=== PATIENT | male | born 1950 | race Caucasian/White ===

== ENCOUNTER → 2019-05-10 13:02 | Outpatient (CLI) | payer OTHER, SELFPAY ==
[2019-05-10 14:01] LABS: Cholesterol 197 mg/dL (140-199); Glucose 96 mg/dL (80-110); HDL Cholesterol 37 mg/dL (40-60); LDL Cholesterol Calculated 113 mg/dL (<100); Triglycerides 236 mg/dL (35-150)
== END ==
PROVIDERS: PCP Family Medicine; Visit Provider Family Medicine
DX: E78.00 Pure hypercholesterolemia, unspecified (principal)
CPT/HCPCS: 36415; 80061; 82947

== ENCOUNTER → 2020-01-06 08:24 | Outpatient (CLI) | payer OTHER, SELFPAY ==
[2020-01-06 09:57] LABS: Cholesterol 147 mg/dL (140-199); HDL Cholesterol 41 mg/dL (40-60); LDL Cholesterol Calculated 73 mg/dL (<100); Triglycerides 163 mg/dL (35-150)
== END ==
PROVIDERS: PCP Family Medicine; Referring Provider Family Medicine; Visit Provider Family Medicine
DX: E78.5 Hyperlipidemia, unspecified (principal)
CPT/HCPCS: 36415; 80061

== ENCOUNTER → 2020-02-12 14:03 | Outpatient (CLI) | payer OTHER, SELFPAY ==
[2020-02-14 02:13] LABS: COVID19 Sendout Not Detected (Not Detect)
== END ==
PROVIDERS: PCP Family Medicine; Visit Provider Student in an Organized Health Care Education/Training Program
DX: Z11.59 Encounter for screening for other viral diseases (principal)
CPT/HCPCS: 87635

== ENCOUNTER 2020-02-15 13:38 | Day surgery (SDC) | payer OTHER, SELFPAY ==
--- NOTE | 2020-02-15 | PATH_ITS ---
[facility] Accession Number: [id number] . 01 Material submitted: . body - POLYP AT 40CM . 02 Diagnosis: Colon Polyp at 40 cm, Biopsy: Tubular adenoma. MRV 02/18/2020 1215 Local . 02 Electronically signed: . Mynor Gonzalez MD, PhD, Pathologist NPI- [id number] . 01 Gross description: . The specimen is received in formalin, labeled polyp at 40 cm and consists of two caballero fragments of soft tissue, measuring 0.6 x 0.5 x 0.3 cm in aggregate. The specimen is entirely submitted in cassette A1. ([id number]) /[facility] 02/16/2020 1635 Local . 02 Pathologist provided ICD-10: D12.6 . 02 CPT . 019464 Performed at: 01 [facility] [address] [id number] MD Kiran Raman MD Phone: [phone] Performed at: 02 [facility] [address] [place] [id number] MD Petrona Plaza MD Phone: [phone]
[2020-02-15] MEDS: SODIUM CHLORIDE 0.9% 1,000 ML 200 ML IV (14:00)
[2020-02-15 14:06] VITALS: BP 135/74; PULSE 60; RESP 12; TEMP 36.9; O2SAT 100; BMI 27.8
--- NOTE | 2020-02-15 14:36 | PM.HP.1 ---
History of Present Illness History of Present Illness Date Patient Seen: 02/15/20 Time Patient Seen: 14:36 Chief complaint: SDC Narrative: This is a 69-year-old man with history of colonoscopy 10 years ago which was reportedly normal. He denies any new symptoms of melena, hematochezia, unexplained abdominal pain, unexplained weight loss. He denies any personal or family history of colon polyps or colon cancers. He says he is otherwise quite healthy. ROS: Reports sleep apnea, Thirteen system review is otherwise negative other than as mentioned below and in HPI. PE: GENERAL: Well groomed and cooperative. Appears stated age. Answers questions promptly and appropriately. Vital signs noted. HENT: Normocephalic, atraumatic. Hearing intact. EYES: Conjunctiva pink, sclera white, no periorbital swelling. CARDIOVASCULAR: Regular rate. No pedal edema. RESPIRATORY: Non-tachypneic, breathing comfortably on room air. GASTROINTESTINAL: Abdomen soft and non-distended GENITALURINARY: No flank tenderness. MUSCULOSKELETAL: Equal tone and mass bilaterally. SKIN: Warm, dry, soft, appropriate color for ethnicity. No other lesions, rashes, or wounds. NEURO: Alert and Oriented X 3. No gross sensory deficits, or cognitive issues. PSYCH: Appropriate affect and mood. Patient History Medical History Chicken pox (Resolved) Obstructive sleep apnea syndrome (Acute 10/20/19) Snoring (Acute) Surgical History Anesthesia (Resolved) Deviated septum (Resolved ~2004) Hip fracture, right (Resolved ~2007) Family & Social History Family History Father Alzheimer's disease Loud snoring Dementia Mother Suicide Insomnia Restless leg Sister COPD (chronic obstructive pulmonary disease) Loud snoring Family/Other Alcoholism Social History: household members spouse other boating Tobacco & Substance use: Smoking Status Never smoker alcohol intake current alcohol intake frequency a few times a month Substance Use Type does not use Meds Home Medications and Allergies Home Medications Medication Instructions Recorded Confirmed Type atorvastatin 10 mg tablet 10 mg PO BEDTIME #90 tab 11/16/19 02/15/20 Rx ipratropium bromide 0.03 % nasal 2 spray NASAL BID-TID #30 ml 11/30/19 02/15/20 Rx spray fluticasone propionate 50 1 spray INTRANASAL QDAY #54.6 ml 12/24/19 02/15/20 Rx mcg/actuation nasal spray,suspension Allergies Allergy/AdvReac Type Severity Reaction Status Date / Time No Known Drug Allergies Allergy Verified 02/15/20 13:53 Exam Vital Signs (past 8 hours): - 02/15/20 14:06 Temperature 98.5 F Pulse Rate 60 Respiratory Rate 12 Blood Pressure 135/74 Pulse Oximetry 100 Oxygen Delivery Method Room Air Assessment & Plan Assessment and plan (1) At average risk for colon cancer: Status: Acute Assessment & Plan narrative: Risks and benefits of screening colonoscopy and possible polypectomy were discussed with the patient including risk of bleeding, perforation, need for additional procedures, risks of anesthesia. The patient desires to proceed with the colonoscopy procedure. COVID-19 COVID-19 status: Negative Result date/Date tested (Pos, Neg/Pending): 02/12/20 Time Spent With Patient Time with patient: 15-24 minutes Quality VTE Deep Vein Thrombosis/Pulmonary Embolism Present on Admission: No
--- NOTE | 2020-02-15 14:45 | P.OP.ENDO_ITS ---
Operative Date/Time/Diagnoses Date of procedure: 02/15/20 Time of procedure: 14:45 Pre-op diagnosis: Average risk for colon cancer, 10 years since last screening colonoscopy Post-op diagnosis: other (5 mm adenomatous appearing polyp at 40 cm) Procedure & Clinicians Study performed: Colonoscopy Procedural sedation performed by the endoscopist Polypectomy with cold forceps Same procedure as scheduled: Yes Indications: Average risk for colon cancer, 10 years since last screening colonoscopy Surgeon: Nuria Beltran Procedure Notes SCOAP/Timeout: Performed Procedure in detail: The patient was brought to the room and placed in left lateral decubitus position with all bony prominences padded. A time-out was performed and then the patient was given procedural sedation starting with 4 mg of Versed and 100 mcg of fentanyl. Total of 5 mg of Versed and 150 micro g of fentanyl were given for the entire procedure. Vitals were monitored throughout the procedure and remained stable. Once adequately sedated, the procedure was begun. A rectal exam was performed revealing no abnormalities. The colonoscope was then introduced to the rectum and advanced to the cecum in the usual fashion. The cecum was identified by the appendiceal orifice, the mucosal tri- fold, and the ileocecal valve. The scope was then retracted while rotating side to side and examining each mucosal fold. Moderate diverticulosis was seen through the left side of the colon. A single polyp was found at 40 cm and removed in pieces. It was at a very difficult angle and was removed piecemeal using cold snare and cold forceps. At the conclusion of the procedure retroflexion was performed and small grade 1-2 internal hemorrhoids without stigmata of bleeding were seen. The scope was then withdrawn from the rectum the procedure was concluded. The patient tolerated the procedure well and was transferred to the PACU in stable condition. Scope withdrawal time: 14 Sedation minutes: 38 Findings: diverticulosis and polyp Specimen(s): other (Follow-up from 40 cm) Complications: none Impression: Moderate diverticulosis, single polyp at 40 cm Post-procedure Recommendations: Colonscopy in 5 years (May change depending on pathology results) Follow up: as needed Disposition: PACU
[2020-02-15] MEDS: MIDAZOLAM 5 MG/5 ML VIAL IV (14:54)
[2020-02-15] MEDS: fentaNYL 250 MCG/5 ML INJ IV (14:54)
[2020-02-15 15:32] VITALS: BP 119/65; PULSE 62; RESP 13; TEMP 36.8; O2SAT 100
[2020-02-15 15:37] VITALS: BP 115/64; PULSE 58; RESP 11; O2SAT 99
[2020-02-15 15:42] VITALS: BP 113/66; PULSE 62; RESP 16; TEMP 36.2; O2SAT 100
== END 2020-02-15 16:08 | disposition home or self-care (01) ==
PROVIDERS: PCP Family Medicine; Referring Provider Surgery; Visit Provider Surgery
PROC: 0DJD8ZZ Inspection of Lower Intestinal Tract, Via Natural or Artificial Opening Endoscopic (ICD-10-PCS; CPT 45378; principal; 2020-02-15 14:30)
DX: Z12.11 Encounter for screening for malignant neoplasm of colon (principal); G47.33 Obstructive sleep apnea (adult) (pediatric); K57.30 Diverticulosis of large intestine without perforation or abscess without bleeding; K64.0 First degree hemorrhoids; D12.6 Benign neoplasm of colon, unspecified
CPT/HCPCS: 45385; J2250; J3010

== ENCOUNTER → 2021-12-22 08:44 | Outpatient (CLI) | payer OTHER, SELFPAY ==
[2021-12-22 09:37] LABS: Alanine Aminotransferase 20 IU/L (<50); Albumin 4.2 g/dL (3.5-5.0); Albumin Globulin Ratio 1.5 (1.0-2.8); Alkaline Phosphatase 67 U/L (38-126); Aspartate Aminotransferase 26 IU/L (17-59); BUN Creatinine Ratio 25.6 (6-22); Bilirubin Total 0.6 mg/dL (0.2-1.3); Blood Urea Nitrogen 21 mg/dL (9-20); Calcium 8.6 mg/dL (8.4-10.2); Carbon Dioxide 27 mmol/L (22-32); Chloride 107 mmol/L (98-107); Cholesterol 120 mg/dL (140-199); Estimated Glomerular Filt Rate > 60 mL/min (>60); Globulin 2.8 g/dL (1.7-4.1); Glucose 90 mg/dL (80-110); HDL Cholesterol 40 mg/dL (40-60); HEMOLYSIS < 15 (0-50); LDL Cholesterol Calculated 70 mg/dL (<100); Potassium 4.2 mmol/L (3.4-5.1); Sodium 141 mmol/L (137-145); Triglycerides 48 mg/dL (35-150)
== END ==
PROVIDERS: PCP Family Medicine; Referring Provider Physician Assistant; Visit Provider Physician Assistant
DX: E78.5 Hyperlipidemia, unspecified (principal); Z12.5 Encounter for screening for malignant neoplasm of prostate
CPT/HCPCS: 36415; 80053; 80061; G0103

== ENCOUNTER → 2022-01-14 07:14 | Outpatient (CLI) | payer OTHER, SELFPAY ==
[2022-01-16 06:06] LABS: PSA, Total 5.3 ng/mL (0.0-4.0)
== END ==
PROVIDERS: PCP Family Medicine; Referring Provider Urology; Visit Provider Urology
DX: R97.20 Elevated prostate specific antigen [PSA] (principal)
CPT/HCPCS: 36415; 84153; 84154

== ENCOUNTER → 2022-01-24 16:02 | Outpatient (CLI) | payer OTHER, SELFPAY ==
--- NOTE | 2022-01-24 16:04 | DI.MRI.S_ITS ---
PROCEDURE: MR PELIS WO/W CON INDICATIONS: Elevated PSA and family history of prostate cancer TECHNIQUE: Coronal HASTE, axial T1 FSE with fat saturation, 3-plane nonbreath-hold T2 FSE. After the administration of contrast, dynamic axial, delayed axial and coronal VIBE or 2-D FLASH with fat saturation through the pelvis. Optional diffusion weighted imaging and ADC may be performed. COMPARISON: None. FINDINGS: Image quality: Diffusion weighted and dynamic contrast enhanced images are diagnostic. Prostate: The prostate measures 5.6 x 5 x 4.6 cm. Total volume is estimated to be about 67 cc. Transitional zone heterogenous nodules are present, either well encapsulated or mostly encapsulated, compatible with PI-RADS 1 or 2 likely BPH nodules. Mildly T2 hypointense heterogenous striated appearance of the peripheral zone is commonly seen with current or prior prostatitis, PI-RADS 2. These findings can obscure small cancers. Genitourinary system: A 11 mm midline cystic lesion is seen in the posterior transitional zone near the base, which could represent a tiny utricle cyst or a cystic area of BPH. There is moderate enhancement around this area without diffusion restriction. Seminal vesicles are moderately atrophic. Nonspecific diffuse mild bladder wall thickening and trabeculations, commonly from chronic outlet obstruction. Bowel and peritoneum: Nonobstructed. No pathologic ascites. Nodes and vessels: No aneurysm. Prominent, non-specific lymph nodes are present that are not enlarged by size criteria. Soft tissues: Fat containing left inguinal hernia. Bones: Right femoral hardware is present. Spondylosis. No discrete enhancing osseous lesion. IMPRESSION: Prostatomegaly and suspected sequela of BPH as above. No PI-RADS 4 or 5 lesion identified. 11 mm midline cystic lesion posterior to the prosthetic urethra could represent a cystic area of BPH or a tiny utricle cyst. There is inflammatory enhancement around this region, without diffusion restriction to suggest abscess. Nonspecific diffuse bladder trabeculations and wall thickening, commonly from chronic outlet obstruction. If needed, cystoscopy could further evaluate. Other incidental findings above. Dictated by: Addison Talbot M.D. on 01/25/2022 at 9:11 Approved by: Addison Talbot M.D. on 01/25/2022 at 9:20
== END ==
PROVIDERS: PCP Family Medicine; Referring Provider Urology; Visit Provider Urology
DX: N40.0 Benign prostatic hyperplasia without lower urinary tract symptoms (principal); R97.20 Elevated prostate specific antigen [PSA]; K40.90 Unilateral inguinal hernia, without obstruction or gangrene, not specified as recurrent; Z80.42 Family history of malignant neoplasm of prostate
CPT/HCPCS: 72197; A9579

== ENCOUNTER → 2022-01-29 10:00 | Outpatient (CLI) | payer OTHER, SELFPAY ==
[2022-01-29 12:15] LABS: BUN Creatinine Ratio 19.6 (6-22); Blood Urea Nitrogen 18 mg/dL (9-20); Carbon Dioxide 28 mmol/L (22-32); Chloride 103 mmol/L (98-107); Estimated Glomerular Filt Rate > 60 mL/min (>60); Glucose 90 mg/dL (80-110); HEMOLYSIS < 15 (0-50); Potassium 4.5 mmol/L (3.4-5.1); Sodium 141 mmol/L (137-145)
== END ==
PROVIDERS: PCP Family Medicine; Referring Provider Urology; Visit Provider Urology
DX: Z01.812 Encounter for preprocedural laboratory examination (principal)
CPT/HCPCS: 36415; 80048

== ENCOUNTER → 2022-01-30 12:07 | Outpatient (CLI) | payer OTHER, SELFPAY ==
--- NOTE | 2022-01-30 | DI.CT.S_ITS ---
PROCEDURE: CT IVP A/P W/WO INDICATIONS: Asymptomatic microscopic hematuria TECHNIQUE: Optional 5 mm thick noncontrast images acquired from the diaphragm to the symphysis pubis. After the administration of intravenous contrast, 5 mm thick images acquired from the diaphragm to the symphysis pubis after a 10-minute delay. 2 mm thick coronal and sagittal reformats were then performed of the kidneys and ureters. For radiation dose reduction, the following was used: automated exposure control, adjustment of mA and/or kV according to patient size. COMPARISON: MRI pelvis 01/24/2022 FINDINGS: Image quality: Excellent Lower chest: Scattered basal scarring/atelectasis. Trace hiatal hernia Solid organs: Liver is unremarkable. Gallbladder is unremarkable. No biliary ductal dilation. Pancreas is unremarkable. No splenomegaly. No adrenal nodules. Bosniak 1 and 2 renal lesions are present, for which no dedicated followup is necessary per 2019 proposed guidelines. No ureter mass or filling defect. No renal mass. No hydronephrosis or renal calculi. Mildly trabeculated bladder. Prostatomegaly and heterogeneous enhancement. Midline posterior prostate small cystic lesion again seen with some enhancement around it. Vessels and lymph nodes: No abdominal aortic aneurysm. No lymphadenopathy by size criteria. Bowel and peritoneum: No bowel obstruction. No pathologic ascites. There are colonic diverticula appear Body wall: Left fat containing inguinal hernia. Fat containing umbilical hernia. Pelvis: As above. Bones: Left femur fixation screws. Scattered degenerative changes without acute or suspicious osseous abnormality. IMPRESSION: No upper tract disease identified. Any lower tract pathology would be better evaluated with cystoscopy. Prostate findings as above, also described on prior recent MRI. Dictated by: Addison Talbot M.D. on 01/30/2022 at 16:18 Approved by: Addison Talbot M.D. on 01/30/2022 at 16:24
== END ==
PROVIDERS: PCP Family Medicine; Referring Provider Urology; Visit Provider Urology
DX: R31.21 Asymptomatic microscopic hematuria (principal); N40.0 Benign prostatic hyperplasia without lower urinary tract symptoms; N32.89 Other specified disorders of bladder
CPT/HCPCS: 74178; Q9967

== ENCOUNTER → 2022-03-22 09:15 | Outpatient (CLI) | payer OTHER, SELFPAY ==
[2022-03-22 11:19] LABS: COVID19 -Nasal RAPID Negative (Negative)
== END ==
PROVIDERS: PCP Family Medicine; Visit Provider Surgery
DX: Z20.822 Contact with and (suspected) exposure to COVID-19 (principal); Z01.812 Encounter for preprocedural laboratory examination
CPT/HCPCS: 87635; C9803

== ENCOUNTER 2022-03-25 11:28 | Day surgery (SDC) | payer OTHER, SELFPAY ==
[2022-03-18 08:37] VITALS: BMI 26.3
[2022-03-25 12:04] VITALS: BP 130/69; PULSE 61; RESP 14; TEMP 36.6; O2SAT 100; BMI 26.3
[2022-03-25] MEDS: LACTATED RINGERS 1,000 ML 42 ML IV (12:27)
--- NOTE | 2022-03-25 13:28 | P.HP_ITS ---
History of Present Illness History of Present Illness Date Patient Seen: 03/25/22 Time Patient Seen: 13:28 Chief complaint: Left inguinal hernia Narrative: Erickson has developed rather significant left inguinal pain since we met last. He has decided he would like to have a left inguinal hernia repair. 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) Nocturnal hypoxemia Obstructive sleep apnea syndrome (10/20/19) Umbilical hernia Surgical History (Updated 03/18/22 @ 08:44 by Vivi Chavez RN) Anesthesia Deviated septum (~2004) Hip fracture, right (~2007) History of circumcision History of hip surgery (2009) Hx of nasal septoplasty (1999) Family & Social History Family History Father Alzheimer's disease Loud snoring Dementia Cancer Mother Suicide Insomnia Restless leg Sister COPD (chronic obstructive pulmonary disease) Loud snoring Family/Other Alcoholism Social History: household members spouse other boating Tobacco & Substance use: Smoking Status Never smoker alcohol intake current alcohol intake frequency a few times a month Substance Use Type does not use Meds Home Medications and Allergies Home Medications Medication Instructions Recorded Confirmed Type lutein 6 mg capsule 6 mg PO DAILY 11/13/20 03/25/22 History atorvastatin 10 mg tablet See Rx Instructions .Route 10/17/21 03/25/22 Rx .COMPLEX #90 tabs fluticasone propionate 50 1 spray intranasal QDAY #54.6 mL 01/07/22 03/25/22 Rx mcg/actuation nasal spray,suspension (Flonase Allergy Relief) ipratropium bromide 21 mcg (0.03 2 spray intranasal BID-TID #30 mL 01/07/22 03/25/22 Rx %) nasal spray multivitamin 1 tab PO DAILY 01/22/22 03/25/22 History Allergies Allergy/AdvReac Type Severity Reaction Status Date / Time succinylcholine AdvReac Intermediate Verified 03/25/22 12:25 Exam Vital Signs (past 8 hours): - 03/25/22 12:04 Temperature 98 F Pulse Rate 61 Respiratory Rate 14 Blood Pressure 130/69 Pulse Oximetry 100 Oxygen Delivery Method Room Air Oxygen Delivery Method Room Air Narrative Exam Narrative: Left inguinal hernia Umbilical hernia Assessment & Plan Assessment and plan (1) Left inguinal hernia: Status: Acute Plan We discussed open left inguinal hernia repair with mesh. He would like to proceed. Time Spent With Patient Critical Care time: I spent a total of [] minutes of critical care time on this patient's care today; this time is exclusive of procedural time.
[2022-03-25] MEDS: CEFAZOLIN 2 GM/100 ML PREMIX 100 ML IV (14:30)
--- NOTE | 2022-03-25 14:43 | SUR.OPER ---
Supine on padded OR bed, head on pillow, arms secured on padded arm boards at <90 degrees abduction, legs uncrossed, safety belt at thigh, tape over blanket over lower legs.
[2022-03-25] MEDS: BUPIVACAINE 0.5% (PF) VIAL 30 ML INJ (14:50)
[2022-03-25] MEDS: LIDOCAINE 1% 20 ML INJ (14:55)
[2022-03-25] MEDS: LACTATED RINGERS 1,000 ML 120 ML IV (15:06)
--- NOTE | 2022-03-25 15:37 | PM.OP.1 ---
Operative Date/Time/Diagnoses Date of procedure: 03/25/22 Time of procedure: 15:38 Pre-op diagnosis: Left inguinal hernia Post-op diagnosis: same Procedure & Clinicians Procedure: Open left inguinal hernia repair with mesh Same procedure as scheduled: Yes Surgeon: Chucky Purcell Operative Notes Procedure in detail: Preoperative antibiotic was administered. The patient was brought to the operating room and placed on the table in supine position general anesthesia was induced. The left groin was prepped and draped in the normal fashion and a time-out was performed. Roughly 10 mL of local anesthetic were injected into the skin and subcutaneous adipose tissue over the left groin. A 6 cm incision was made over the left inguinal canal. Dissection was carried down through the subcutaneous adipose tissue. A bridging vein was cauterized. We exposed the external oblique aponeurosis in the direction of the fibers. Additional local was injected deep to the aponeurosis. A 15 blade scalpel was used to adin the external oblique aponeurosis. Metzenbaum scissors were used to carefully open the aponeurosis in the direction of the fibers taking care not to injure the underlying ilioinguinal nerve which was well seen and protected. We completely exposed the inguinal canal. The cord was dissected free from the inguinal ligament and floor of the inguinal canal and the external oblique aponeurosis was dissected off of the internal oblique. Small bleeder was cauterized medial to the internal ring. Upon closer inspection it appeared that there was a branch of the iliohypogastric nerve coursing through the area that was cauterized so we injected some lidocaine into in then resected this nerve branch about 2 cm proximally so that it would above the level of mesh. We encircled the cord with a Mary drain for retraction. There was a small indirect hernia sac which was dissected free from the cord structures and reduced along with some fatty tissue. We placed a polypropylene mesh over the inguinal canal floor. The mesh was secured with multiple interrupted 3-0 Prolene sutures to the pubic tubercle and shelving edge of the inguinal ligament as well as to the conjoint tendon medially. We overlapped the tails to recreate an internal ring and secured the medial tail to the inguinal ligament with additional sutures. We injected some more local into the fatty tissue in the inguinal canal and cord. Finally, we removed the Mary drain and closed the external oblique fascia with a running 3-0 Vicryl suture. Skin was closed with interrupted 3-0 Vicryl dermal sutures and a running 4 Monocryl subcuticular stitch. EBL 5 mL The patient was awakened and brought to recovery room. Post-operative Condition: stable Disposition: PACU
[2022-03-25 15:48] VITALS: BP 122/68; PULSE 77; RESP 12; TEMP 36.4; O2SAT 96
[2022-03-25 15:57] VITALS: BP 121/66; PULSE 72; RESP 13; O2SAT 97
[2022-03-25 16:00] VITALS: BP 105/68; PULSE 76; RESP 12; TEMP 36.3; O2SAT 97
[2022-03-25 16:08] VITALS: BP 115/68; PULSE 75; RESP 14; O2SAT 94
[2022-03-25 16:13] VITALS: BP 111/65; PULSE 72; RESP 16; TEMP 36.9; O2SAT 98
== END 2022-03-25 16:27 | disposition home or self-care (01) ==
PROVIDERS: PCP Family Medicine; Referring Provider Surgery; Visit Provider Surgery
PROC: (CPT 49505; principal; 2022-03-25 13:00)
PROC: (CPT 49505; 2022-03-25 13:00)
DX: K40.90 Unilateral inguinal hernia, without obstruction or gangrene, not specified as recurrent (principal); G47.33 Obstructive sleep apnea (adult) (pediatric)
CPT/HCPCS: 49505; J0690; J1100; J2250; J2405; J2704; J3010

== ENCOUNTER → 2022-08-13 12:12 | Outpatient (CLI) | payer OTHER, SELFPAY ==
[2022-08-13 13:51] LABS: Prostate Specific Antigen 6.05 ng/mL (0.10-4.00)
== END ==
PROVIDERS: PCP Family Medicine; Referring Provider Urology; Visit Provider Urology
DX: R97.20 Elevated prostate specific antigen [PSA] (principal)
CPT/HCPCS: 36415; 84153

== ENCOUNTER → 2023-01-20 06:59 | Outpatient (CLI) | payer OTHER, SELFPAY ==
[2023-01-20 08:44] LABS: Alanine Aminotransferase 25 IU/L (<50); Albumin 4.2 g/dL (3.5-5.0); Albumin Globulin Ratio 1.4 (1.0-2.8); Alkaline Phosphatase 72 U/L (38-126); Aspartate Aminotransferase 31 IU/L (17-59); BUN Creatinine Ratio 23.5 (6-22); Bilirubin Total 0.5 mg/dL (0.2-1.3); Blood Urea Nitrogen 20 mg/dL (9-20); Calcium 9.1 mg/dL (8.4-10.2); Carbon Dioxide 24 mmol/L (22-32); Chloride 107 mmol/L (98-107); Cholesterol 141 mg/dL (140-199); Estimated Glomerular Filt Rate > 60 mL/min (>60); Glucose 96 mg/dL (80-110); HDL Cholesterol 38 mg/dL (40-60); HEMOLYSIS < 15 (0-50); LDL Cholesterol Calculated 89 mg/dL (<100); Sodium 139 mmol/L (137-145); Total Protein 7.2 g/dL (6.3-8.2); Triglycerides 71 mg/dL (35-150)
[2023-01-20 16:15] LABS: Hep C Virus Ab w/Reflex Quant NEGATIVE s/c (NEGATIVE)
== END ==
PROVIDERS: PCP Family Medicine; Referring Provider Family Medicine; Visit Provider Family Medicine
DX: E78.5 Hyperlipidemia, unspecified (principal); Z11.59 Encounter for screening for other viral diseases
CPT/HCPCS: 36415; 80053; 80061; 86803

== ENCOUNTER 2023-01-28 06:24 | Day surgery (SDC) | payer OTHER, SELFPAY ==
[2023-01-24 09:38] VITALS: BMI 27.3
[2023-01-28 06:55] VITALS: BP 125/70; PULSE 59; RESP 16; TEMP 36.2; O2SAT 100; BMI 27.3
[2023-01-28] MEDS: LACTATED RINGERS 1,000 ML 42 ML IV (07:14)
--- NOTE | 2023-01-28 07:42 | PM.PREOP ---
Pre-operative Note COVID-19 COVID-19 status: Not tested Interval Note History & Physical reviewed/Exam performed by Physician: Yes Changes to H&P: No ASA Class (for procedural sedation): II
[2023-01-28] MEDS: CEFAZOLIN 2 GM/100 ML PREMIX 100 ML IV (07:59)
[2023-01-28] MEDS: ACETAMINOPHEN IV 1,000 MG/100 ML VIAL 400 MG IV (08:10)
--- NOTE | 2023-01-28 08:18 | SUR.OPER ---
Supine on padded OR bed, head on pillow, arms secured on padded arm boards at <90 degrees abduction, legs uncrossed, safety belt at thigh, tape over blanket over lower legs.
[2023-01-28] MEDS: BUPIVACAINE 0.5% (PF) 30 ML, EPINEPHrine 0.15 MG INJ (08:24)
--- NOTE | 2023-01-28 08:47 | PM.OP.1 ---
Operative Date/Time/Diagnoses Date of procedure: 01/28/23 Time of procedure: 08:47 Pre-op diagnosis: Umbilical hernia Post-op diagnosis: same Procedure & Clinicians Procedure: Open umbilical hernia repair with mesh Same procedure as scheduled: Yes Surgeon: Chucky Purcell Plodding Machine Operator: Josesito Schneider Anesthesia Type: General Operative Notes Procedure in detail: Ancef was administered. The patient was brought to the operating room, placed on the table in the supine position and general endotracheal anesthesia was induced. The abdomen was prepped and draped in the usual fashion. A time-out was performed. A 5 cm curvilinear incision was made inferior to the umbilicus. The hernia sac was dissected free from the surrounding subcutaneous adipose tissue. The sac was dissected off the umbilical stalk using a combination of cautery, sharp and blunt dissection. The hernia sac was dissected free from the fascial ring and allowed to drop back down into the abdomen. The fascia was then closed transversely with multiple interrupted 0 Ethibond sutures. The subcutaneous adipose tissue was cleared off of the anterior sheath circumferentially about 2 cm in each direction. A piece of polypropylene mesh was trimmed to fit over the fascial closure and secured with Tisseel. There was a tiny buttonhole defect in the umbilical skin which was closed from the inside with a an interrupted [id number] 3-0 Vicryl stitch. Another suture was used to tack the umbilical skin down to the deep tissue. The skin incision was closed with multiple interrupted 3-0 Vicryl dermal sutures followed by a running 4 Monocryl subcuticular closure. Steri-Strips were applied and an abdominal binder was applied. Josesito SANCHEZ provided assistance with exposure, retraction and closure of incisions. EBL: 10 mL Post-operative Condition: stable Disposition: PACU
[2023-01-28 09:00] VITALS: BP 144/75; PULSE 79; RESP 19; TEMP 36.6; O2SAT 94
[2023-01-28 09:05] VITALS: BP 122/64; PULSE 80; RESP 22; TEMP 36.4; O2SAT 97
[2023-01-28 09:11] VITALS: BP 118/67; PULSE 71; RESP 13; O2SAT 98
[2023-01-28 09:16] VITALS: BP 118/57; PULSE 68; RESP 16; O2SAT 93
[2023-01-28 09:26] VITALS: BP 116/60; PULSE 66; RESP 14; TEMP 36.6; O2SAT 95
== END 2023-01-28 09:36 | disposition home or self-care (01) ==
PROVIDERS: PCP Family Medicine; Referring Provider Surgery; Visit Provider Surgery
PROC: (CPT 49593; principal; 2023-01-28 07:45)
DX: K42.9 Umbilical hernia without obstruction or gangrene (principal); K21.9 Gastro-esophageal reflux disease without esophagitis; G47.30 Sleep apnea, unspecified
CPT/HCPCS: 49593; C1781; J0131; J0171; J0690; J1100; J1170; J2405; J2704; J3010; J3490

== ENCOUNTER → 2023-02-12 15:02 | Outpatient (CLI) | payer OTHER, SELFPAY ==
[2023-02-17 13:38] LABS: PSA Free % 19.6 % (.); PSA, Total 8.5 ng/mL (0.0-4.0)
== END ==
PROVIDERS: PCP Family Medicine; Referring Provider Urology; Visit Provider Urology
DX: R33.9 Retention of urine, unspecified (principal); R97.20 Elevated prostate specific antigen [PSA]; R39.9 Unspecified symptoms and signs involving the genitourinary system
CPT/HCPCS: 36415; 84153; 84154

== ENCOUNTER → 2023-03-03 14:13 | Outpatient (CLI) | payer OTHER, SELFPAY ==
--- NOTE | 2023-03-03 14:22 | DI.MRI.S_ITS ---
PROCEDURE: MR PELVIC PROSTATE PROTOCOL INDICATIONS: Elevated/rising PSA, family history prostate cancer TECHNIQUE: Coronal HASTE, axial T1 FSE with fat saturation, 3-plane nonbreath-hold T2 FSE. After the administration of contrast, dynamic axial, delayed axial and coronal VIBE or 2-D FLASH with fat saturation through the pelvis. Restricted diffusion weighted imaging and ADC. COMPARISON: [facility], CT, CT IVP A/P W/WO, 01/30/2022, 12:20. [facility], MR, MR PELVIS WO/W CON, 01/24/2022, 16:11. FINDINGS: Image quality: Diffusion weighted and dynamic contrast enhanced images are diagnostic. Prostate: Gland size is 6.6 x 5.5 x 5.5 cm; ellipsoid gland volume is 104 mL. No significant foci of intrinsic T1 hyperintensity to suggest hemorrhage. Multiple BPH nodules. Small prostate cyst. No significant areas of ADC hypointensity in the peripheral zone. No suspicious foci of the T2 hypointense signal in the transitional zone. No PI-RADS 4 or 5 observations. Genitourinary system: Bladder wall thickness is normal. Distal ureters are non distended. Bowel and peritoneum: No pathologic free pelvic fluid. Inferior colon and small bowel loops are normal in caliber. Nodes and vessels: No pelvic or inguinal adenopathy by size criteria. Iliac vessels are normal in caliber. Soft tissues: Fat containing left inguinal hernia. Umbilical hernia. Bones: Marrow demonstrates normal overall signal, without lesions to suggest metastases. Right hip screws. IMPRESSION: 1. Marked prostatomegaly. Multiple BPH nodules. 2. No PI-RADS 4 or 5 observations. 3. No enlarged lymph nodes. Dictated by: Marlon Jolly M.D. on 03/03/2023 at 20:04 Approved by: Marlon Jolly M.D. on 03/03/2023 at 20:18
== END ==
PROVIDERS: PCP Family Medicine; Referring Provider Urology; Visit Provider Urology
DX: N40.2 Nodular prostate without lower urinary tract symptoms (principal); N42.83 Cyst of prostate; R97.20 Elevated prostate specific antigen [PSA]; K40.90 Unilateral inguinal hernia, without obstruction or gangrene, not specified as recurrent; K42.9 Umbilical hernia without obstruction or gangrene; Z80.42 Family history of malignant neoplasm of prostate
CPT/HCPCS: 72197

== ENCOUNTER → 2023-09-24 06:41 | Outpatient (CLI) | payer OTHER, SELFPAY ==
[2023-09-25 14:13] LABS: PSA Free % 17.1 % (.); PSA, Total 6.5 ng/mL (0.0-4.0)
== END ==
PROVIDERS: PCP Family Medicine; Referring Provider Urology; Visit Provider Urology
DX: R97.20 Elevated prostate specific antigen [PSA] (principal)
CPT/HCPCS: 36415; 84153; 84154

== ENCOUNTER → 2024-03-17 09:15 | Outpatient (CLI) | payer OTHER, SELFPAY ==
[2024-03-17 10:29] LABS: Cholesterol 163 mg/dL (140-199); HDL Cholesterol 39 mg/dL (40-60); LDL Cholesterol Calculated 100 mg/dL (<100); Triglycerides 118 mg/dL (35-150)
[2024-03-17 10:30] LABS: Alanine Aminotransferase 30 IU/L (<50); Albumin 4.4 g/dL (3.5-5.0); Albumin Globulin Ratio 1.8 (1.0-2.8); Alkaline Phosphatase 76 U/L (38-126); Aspartate Aminotransferase 35 IU/L (17-59); Bilirubin Total 0.8 mg/dL (0.2-1.3); Blood Urea Nitrogen 13 mg/dL (9-20); Calcium 9.4 mg/dL (8.4-10.2); Carbon Dioxide 27 mmol/L (22-32); Chloride 106 mmol/L (98-107); Estimated Glomerular Filt Rate > 60 mL/min (>60); Globulin 2.4 g/dL (1.7-4.1); Glucose 96 mg/dL (80-110); HEMOLYSIS < 15 (0-50); Potassium 4.3 mmol/L (3.4-5.1); Sodium 141 mmol/L (137-145); Total Protein 6.8 g/dL (6.3-8.2)
[2024-03-17 10:53] LABS: TSH w/ Reflex to FT4 4.19 uIU/mL (0.47-4.68)
== END ==
PROVIDERS: PCP Family Medicine; Referring Provider Family Medicine; Visit Provider Family Medicine
DX: E03.9 Hypothyroidism, unspecified (principal); E78.5 Hyperlipidemia, unspecified; R39.89 Other symptoms and signs involving the genitourinary system
CPT/HCPCS: 36415; 80053; 80061; 84443

== ENCOUNTER → 2025-01-28 06:41 | Outpatient (CLI) | payer OTHER, SELFPAY ==
[2025-01-28 08:17] LABS: Alanine Aminotransferase 19 IU/L (<50); Albumin 4.2 g/dL (3.5-5.0); Albumin Globulin Ratio 1.7 (1.0-2.8); Alkaline Phosphatase 70 U/L (38-126); Blood Urea Nitrogen 16 mg/dL (9-20); Calcium 9.2 mg/dL (8.4-10.2); Carbon Dioxide 26 mmol/L (22-32); Chloride 106 mmol/L (98-107); Cholesterol 148 mg/dL (140-199); Estimated Glomerular Filt Rate > 60 mL/min (>60); Globulin 2.5 g/dL (1.7-4.1); Glucose 87 mg/dL (70-99); HDL Cholesterol 40 mg/dL (40-60); HEMOLYSIS < 15 (0-50); Potassium 4.2 mmol/L (3.4-5.1); Sodium 140 mmol/L (137-145); Total Protein 6.7 g/dL (6.3-8.2); Triglycerides 118 mg/dL (35-150)
[2025-01-28 08:48] LABS: Prostate Specific Antigen 8.22 ng/mL (0.10-4.00)
== END ==
PROVIDERS: PCP Family Medicine; Referring Provider Family Medicine; Visit Provider Family Medicine
DX: Z00.00 Encounter for general adult medical examination without abnormal findings (principal); E78.5 Hyperlipidemia, unspecified; R97.20 Elevated prostate specific antigen [PSA]
CPT/HCPCS: 36415; 80053; 80061; 84153

== ENCOUNTER 2025-04-08 09:56 | Day surgery (SDC) | payer OTHER, SELFPAY ==
[2025-04-04 15:06] VITALS: BMI 27.8
--- NOTE | 2025-04-08 | PATH_ITS ---
[facility] Accession Number: [id number] No. of containers..03 Tissue . 01 Material submitted: . PART A: colon - COLON, ASCENDING POLYP PART B: colon - COLON, TRANSVERSE POLYP PART C: colon - COLON, TRANSVERSE POLYP # 2 . 01 Diagnosis: A: ASCENDING COLON, POLYPECTOMY: Colonic mucosa with benign lymphoid aggregates. Negative for dysplasia, or malignancy. Additional deeper levels were examined. - B: TRANSVERSE COLON, POLYPECTOMY: Tubular adenoma. - C: TRANSVERSE COLON, POLYPECTOMY #2: Tubular adenoma. [facility] 04/13/2025 1343 Local . 01 Electronically signed: . Edith Rodarte MD, Pathologist NPI- [id number] . 01 Gross description: . A. Received in formalin with two patient identifiers, and ascending colon polyp are four, 0.1-0.4 cm caballero tissue fragments, entirely submitted in A1. B. Received in formalin with two patient identifiers, and transverse colon polyp are two, 0.3-0.5 cm caballero tissue fragments, entirely submitted in B1. C. Received in formalin with two patient identifiers, and transverse colon polyp #2 are four, 0.3-0.7 cm caballero tissue fragments, entirely submitted in C1. ([id number]) /[facility]V 04/12/2025 1112 Local . 01 Pathologist provided ICD-10: Z12.11 . 01 CPT . 597498, 460821, 659085 Specimen Comment: A courtesy copy of this report has been sent to [phone] Performed at: [address] [facility] [address], [place], [place] [id number] MD Kiran Raman MD Phone: [phone]
[2025-04-08] MEDS: LACTATED RINGERS 1,000 ML 42 ML IV (10:31)
[2025-04-08 10:33] VITALS: BP 135/84; PULSE 57; RESP 16; TEMP 36.6; O2SAT 100
--- NOTE | 2025-04-08 10:51 | PM.HP.IH.1 ---
History of Present Illness History of Present Illness Date Patient Seen: 04/08/25 Time Patient Seen: 10:51 Chief complaint: SDC Narrative: Erickson is a 74-year-old man who had a small polyp removed on his last colonoscopy in 2019 that came back as a tubular adenoma. 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) Nocturnal hypoxemia Hyperlipidemia Obstructive sleep apnea syndrome (10/20/19) Chicken pox Surgical History Hx of inguinal hernia repair (03/25/22) History of hip surgery (2009) Hx of nasal septoplasty (1999) History of circumcision Anesthesia Deviated septum (~2004) Hip fracture, right (~2007) Family History Father Alzheimer's disease Loud snoring Dementia Cancer Mother Suicide Insomnia Restless leg Sister COPD (chronic obstructive pulmonary disease) Loud snoring Family/Other Alcoholism Social History marital status: number of children: 2 household members: spouse pets and animals: No education level: college occupational status: previously employed and other other: boating seatbelt use: always helmet use: No water heater temp set < 120 deg: No working smoke detector in home: Yes fire extinguisher in home: Yes carbon monox detector in home: Yes firearms in home: No Smoking Status: Never smoker second hand exposure: No alcohol intake: never substance use type: does not use Type(s) of exercise: other frequency: 5-6 times per week Meds Home Medications and Allergies Home Medications ?Medication ?Instructions ?Recorded ?Confirmed ?Type fluticasone propionate 50 1 spray intranasal QDAY #54.6 mL 03/26/24 04/08/25 Rx mcg/actuation nasal spray,suspension (Flonase Allergy Relief) atorvastatin 10 mg tablet 10 mg PO QPM #90 tabs 03/11/25 04/08/25 Rx Allergies Allergy/AdvReac Type Severity Reaction Status Date / Time succinylcholine AdvReac Intermediate Verified 04/08/25 10:32 Exam Vital Signs (past 8 hours): - 04/08/25 10:33 Temperature 97.8 F Pulse Rate 57 L Respiratory Rate 16 Blood Pressure 135/84 Pulse Oximetry 100 Oxygen Delivery Method Room Air Oxygen Delivery Method Room Air Const General: healthy appearing Assessment & Plan Assessment and plan (1) History of colon polyps: Status: Acute Plan Colonoscopy for history of polyps Time-Based Coding :: [TOTAL MINUTES] spent with patient and on the chart (including review of chart, obtaining history, exam, reviewing outside data, placing orders, documenting exam and treatment plan, and counseling patient) on [DATE]. 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
--- NOTE | 2025-04-08 11:23 | P.OP.COLON_ITS ---
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 The patient was connected to monitoring devices. A time-out was performed. Sedation was administered. Once the patient was adequately sedated, a digital rectal exam was performed and was normal. The scope was then inserted and advanced to the cecum where the appendiceal orifice was identified and photographed. The scope was then slowly withdrawn over greater than 6 minutes. The mucosa was thoroughly inspected. There was a 5 mm polyp in the ascending colon removed with a cold snare. There was a 5 mm polyp in the proximal transverse colon removed cold snare. There was a 7 mm polyp in the mid transverse colon removed with a cold snare. There was moderate sigmoid colon diverticulosis. The scope was retroflexed in the rectum. No other abnormalities were found. The scope was straightened and removed. The patient was awakened and brought to recovery. Scope withdrawal time: 8 minutes Sedation time: 13 minutes Findings: 5 mm ascending colon polyp, 5 mm proximal transverse colon polyp, 7 mm mid transverse colon polyp and sigmoid diverticulosis. Estimated Blood Loss: 5 Complications: none Post-procedure Disposition: PACU
[2025-04-08 11:24] VITALS: BP 94/57; PULSE 55; RESP 16; TEMP 36.3; O2SAT 98
[2025-04-08 11:25] VITALS: BP 112/57; PULSE 56; RESP 20; O2SAT 98
[2025-04-08 11:32] VITALS: BP 118/66; PULSE 53; RESP 24; O2SAT 98
== END 2025-04-08 11:49 | disposition home or self-care (01) ==
PROVIDERS: PCP Family Medicine; Referring Provider Surgery; Visit Provider Surgery
PROC: 0DJD8ZZ Inspection of Lower Intestinal Tract, Via Natural or Artificial Opening Endoscopic (ICD-10-PCS; CPT 45378; principal; 2025-04-08 11:00)
DX: Z12.11 Encounter for screening for malignant neoplasm of colon (principal); Z86.0101 Personal history of adenomatous and serrated colon polyps; K57.30 Diverticulosis of large intestine without perforation or abscess without bleeding; D12.3 Benign neoplasm of transverse colon
CPT/HCPCS: 45385; J2704; J7120